=== PATIENT | female | born 1975 | race Caucasian/White ===

== ENCOUNTER 2016-05-04 21:57 | Emergency (ER) | payer BC ==
[2016-05-04 22:04] VITALS: RESP 20; TEMP 98.6; O2SAT 94
[2016-05-04] MEDS ORDERED: NS 1,000 ML IV ONE (23:20)
[2016-05-04 23:25] LABS: % IMMATURE GRANULYOCYTES 0.9 % (0.0-1.1); ABSOLUTE IMMATURE GRANULOCYTES 0.12 10^3/uL (0.00-0.10); ADD DIFF? NO; ADD MORPH? NO; ADD SCAN? NO; ATYPICAL LYMPHOCYTE FLAG 20 (0-99); FRAGMENT RBC FLAG 0 (0-99); HEMATOCRIT 43.1 % (38.0-47.0); LEFT SHIFT FLG 0 (0-99); LIPEMIA HEMOLYSIS FLAG 90 (0-99); MEAN CELL HEMOGLOBIN 32.1 pg (27.9-34.1); MEAN CELL HEMOGLOBIN CONCENTR. 34.8 g/dL (32.4-36.7); MEAN CELL VOLUME 92.3 fL (81.5-99.8); MEAN PLATELET VOLUME 8.8 fL (8.7-11.7); PLATELET CLUMPS FLAG 20 (0-99); PLATELET COUNT 315 10^3/uL (150-400); RED BLOOD CELL COUNT 4.67 10^6/uL (4.18-5.33); RED CELL DISTRIBUTION WIDTH 11.8 % (11.5-15.2)
[2016-05-04] MEDS ORDERED: ONDANSETRON 4 MG/2 ML VIAL ONE (23:27)
[2016-05-04] MEDS ORDERED: ONDANSETRON 4 MG/2 ML VIAL IVP ONE (23:31)
[2016-05-04 23:35] LABS: ANION GAP 12 mEq/L (8-16); CALCIUM 9.5 mg/dL (8.5-10.4); CARBON DIOXIDE 25 mEq/l (22-31); CHLORIDE 102 mEq/L (97-110); CREATININE 0.8 mg/dL (0.6-1.0); GLOMERULAR FILTRATION RATE > 60; GLUCOSE 100 mg/dL (70-100); POTASSIUM 4.1 mEq/L (3.5-5.2); SODIUM 139 mEq/L (134-144)
--- NOTE | 2016-05-04 23:56 | EDPHY ---
HPI/HX/ROS/PE/MDM Narrative: Chief complaint: Headache, cough, myalgias HPI: 40-year-old woman whose had flu-like symptoms since the 26 of April. Began with cough and 26. The next day developed body aches. Cough became worse with rattling in her lungs. She was seen by her family practice doctor who started her on prednisone and azithromycin 3 days ago which she has been taking. She does have a history of exercise induced asthma and occasionally takes Xopenex inhaler. She does not use a spacer. This evening should at 8:45 a.m. she developed a gradual onset headache over the course of about 15-20 minutes. This is associated with some nausea and vomiting. She is not prone to headaches in the past. It was not immediate onset. She took 600 mg of ibuprofen without any significant relief. No recent fevers or chills. Has had some lower bilateral rib pain associated with her cough. No neck stiffness. ROS: 10 point Review of Systems is negative except as noted in the HPI. Physical exam: Gen: Awake, Alert, No Distress HEENT: Nose: no rhinorrhea Eyes: PERRLA, EOMI Mouth: Moist mucosa Neck: Supple, no meningismus, no Kernig's, no Brudzinski's Chest: nontender, lungs clear to auscultation Heart: S1, S2 normal, no murmur Abd: Soft, non-tender, no guarding Back: no CVA tenderness, no midline tenderness Ext: no edema, non-tender Skin: no rash Neuro: CN II-XII intact, Sensation grossly intact, Strength 5/5 in bilateral upper and lower extremities ED Course: Patient is headache is gone is feeling much better after fluids and morphine and acetaminophen. She has a mild leukocytosis but no left shift. Urinalysis is consistent with a mild urinary tract infection without contamination. I do feel however majority of her symptoms are secondary to a viral upper respiratory infection. Will give her Macrobid here. She will have complete the course of antibiotics for bronchitis. Her breathing is improved after using her on Xopenex. She will follow up with primary care physician in 2-3 days for re-evaluation. - Data Points Laboratory Results: Laboratory Results 05/04/16 23:10 05/04/16 23:10 05/05/16 05/04/16 00:25 23:10 WBC 12.80 H 10^3/uL (3.80-9.50) RBC 4.67 10^6/uL (4.18-5.33) Hgb 15.0 g/dL (12.6-16.3) Hct 43.1 % (38.0-47.0) MCV 92.3 fL (81.5-99.8) MCH 32.1 pg (27.9-34.1) MCHC 34.8 g/dL (32.4-36.7) RDW 11.8 % (11.5-15.2) Plt Count 315 10^3/uL (150-400) MPV 8.8 fL (8.7-11.7) Neut % (Auto) 67.6 % (39.3-74.2) Lymph % (Auto) 26.3 % (15.0-45.0) Sharkey % (Auto) 4.9 % (4.5-13.0) Eos % (Auto) 0.1 L % (0.6-7.6) Baso % (Auto) 0.2 L % (0.3-1.7) Nucleat RBC Rel Count 0.0 % (0.0-0.2) Absolute Neuts (auto) 8.66 H 10^3/uL (1.70-6.50) Absolute Lymphs (auto) 3.36 H 10^3/uL (1.00-3.00) Absolute Monos (auto) 0.63 10^3/uL (0.30-0.80) Absolute Eos (auto) 0.01 L 10^3/uL (0.03-0.40) Absolute Basos (auto) 0.02 10^3/uL (0.02-0.10) Absolute Nucleated RBC 0.00 10^3/uL (0-0.01) Immature Gran % 0.9 % (0.0-1.1) Immature Gran # 0.12 H 10^3/uL (0.00-0.10) Sodium 139 mEq/L (134-144) Potassium 4.1 mEq/L (3.5-5.2) Chloride 102 mEq/L (97-110) Carbon Dioxide 25 mEq/l (22-31) Anion Gap 12 mEq/L (8-16) BUN 15 mg/dL (7-23) Creatinine 0.8 mg/dL (0.6-1.0) Estimated GFR > 60 Glucose 100 mg/dL (70-100) Calcium 9.5 mg/dL (8.5-10.4) Urine Color COLORLESS Urine Appearance CLEAR Urine pH 5.0 (5.0-7.5) Ur Specific [place] 1.004 (1.002-1.030) Urine Protein NEGATIVE (NEGATIVE) Urine Ketones NEGATIVE (NEGATIVE) Urine Blood NEGATIVE (NEGATIVE) Urine Nitrate NEGATIVE (NEGATIVE) Urine Bilirubin NEGATIVE (NEGATIVE) Urine Urobilinogen NEGATIVE EU (0.2-1.0) Ur Leukocyte Esterase TRACE H (NEGATIVE) Urine RBC 1-3 /hpf (0-3) Urine WBC 5-10 H /hpf (0-3) Ur Epithelial Cells Not Reported Urine Bacteria TRACE H /hpf (NONE SEEN) Urine Mucus TRACE /lpf (NONE-1+) Urine Glucose NEGATIVE (NEGATIVE) General Time Seen by Provider: 05/04/16 23:06 Initial Vital Signs: Initial Vital Signs Temperature (C) 37 C 05/04/16 22:01 Heart Rate 78 05/04/16 22:01 Respiratory Rate 20 05/04/16 22:01 Blood Pressure 126/86 H 05/04/16 22:01 O2 Sat (%) 94 05/04/16 22:01 O2 Delivery Mode Room Air Allergies/Adverse Reactions: codeine [Codeine] Adverse Reaction (Intermediate, Verified 05/04/16 22:00) NAUSEA Home Medications: Medication Instructions Recorded Sertraline HCl [Zoloft 100mg (RX)] 02/09/15 Nitrofurantoin Monohyd/M-Cryst 100 mg PO BID #8 capsule 05/05/16 [Macrobid 100 mg Capsule] Departure - Departure Disposition: Home, Routine, Self-Care Clinical Impression: Viral upper respiratory tract infection, Urinary tract infection Condition: Good Instructions: Viral Syndrome (ED), Acute Bronchitis (ED), Urinary Tract Infection in Women (ED) Additional Instructions: Continue to take all of your prescribed antibiotics. Use a spacer when using your asthma inhaler. Follow up with her primary care provider in 2-3 days for re-evaluation if not improved. Referrals: Jovany Pennington MD [Primary Care Provider] - As per Instructions Prescriptions: Nitrofurantoin Monohyd/M-Cryst [Macrobid 100 mg Capsule] 100 mg PO BID #8 capsule
[2016-05-05] MEDS ORDERED: ONDANSETRON 4 MG/2 ML VIAL IVP ONE (00:29)
[2016-05-05] MEDS ORDERED: ONDANSETRON 4 MG/2 ML VIAL ONE (00:31)
[2016-05-05 00:36] LABS: COLOR COLORLESS; LEUKOCYTE ESTERASE,URINE TRACE (NEGATIVE); NITRITE,URINE NEGATIVE (NEGATIVE)
[2016-05-05 00:39] LABS: BACTERIA TRACE /hpf (NONE SEEN); MUCUS TRACE /lpf (NONE-1+)
[2016-05-05] MEDS ORDERED: NITROFURANTOIN 100MG PREPACK#2 BTL TAKEHOME ONE ×2 (00:53→01:06)
[2016-05-05] MEDS ORDERED: LORazepam 0.5 MG TAB ONE (01:17)
[2016-05-05] MEDS ORDERED: LORazepam 0.5 MG TAB PO ONE (01:18)
[2016-05-05 01:29] VITALS: BP 114/83; PULSE 74
== END 2016-05-05 01:28 | disposition home or self-care (01) ==
DX: J06.9 Acute upper respiratory infection, unspecified (principal); N39.0 Urinary tract infection, site not specified; B96.89 Other specified bacterial agents as the cause of diseases classified elsewhere
CPT/HCPCS: 96374; J2405

== ENCOUNTER → 2018-09-26 | Outpatient (CLI) | payer OTHER | LOC: FIMAGING 07:55 ==

== ENCOUNTER → 2018-10-20 | Day surgery (SDC) | payer OTHER | LOC: FIMAGING 12:25 ==